=== PATIENT | female | born 1965 | race Caucasian/White ===

== ENCOUNTER → 2023-09-03 07:57 | Outpatient (REF) | payer BC, SELFPAY | LOC: WDC 07:57 | PROVIDERS: ATTENDING PHYSICIAN Obstetrics & Gynecology Gynecology; FAMILY PHYSICIAN Internal Medicine | DX: Z12.31 Encounter for screening mammogram for malignant neoplasm of breast (principal) | CPT/HCPCS: 77063; 77067 ==

== ENCOUNTER → 2023-11-28 07:50 | Outpatient (REF) | payer BC, SELFPAY ==
[2023-11-28 09:57] LABS: Hematocrit 37.2 % (37.0-47.0); Hemoglobin 13.1 g/dL (12.0-16.0); Mean Corp Hgb Conc. 35.2 g/dL (33.0-37.0); Mean Corpuscular Hgb 33.1 pg (27.0-31.0); Mean Corpuscular Volume 93.9 fL (81.0-99.0); Mean Platelet Volume 9.2 fL (7.4-10.4); Platelet Count 315 10^3/uL (130-400); Red Blood Cell Count 3.96 10^6/uL (4.20-5.40); Red Cell Dist. Width 11.9 % (11.5-14.5); White Blood Cell Count 4.1 10^3/uL (4.8-10.8)
[2023-11-28 10:37] LABS: ALT (SGPT) 18 U/L (0-35); AST (SGOT) 28 U/L (14-36); Albumin 4.5 g/dl (3.5-5.0); Alkaline Phosphatase 66 U/L (38-126); Blood Urea Nitrogen 18 mg/dl (7-17); Calcium 9.5 mg/dl (8.4-10.2); Carbon Dioxide 26 mmol/L (22-30); Chloride 103 mmol/L (98-107); Glucose 86 mg/dl (70-99); HDL Cholesterol 66 mg/dl; LDL Cholesterol, Calculated 134 mg/dl; Potassium 4.5 mmol/L (3.5-5.1); Sodium 138 mmol/L (135-145); Total Bilirubin 0.8 mg/dl (0.2-1.3); Total Cholesterol 211 mg/dl (50-199); Total Protein 7.3 g/dl (6.3-8.2); Triglyceride 56 mg/dl (10-149); Very Low Density Lipoprotein 11 mg/dl (0-30); eGFR > 60.00
[2023-11-28 10:58] LABS: TSH 6.12 uIU/ml (0.47-4.68)
[2023-11-28 11:05] LABS: Urine Albumin Negative (Neg - Trace); Urine Bilirubin Negative (Negative); Urine Character Clear (Clear); Urine Color Yellow; Urine Glucose Negative (Negative); Urine Ketone Negative (Negative); Urine Leukocyte Trace (Negative); Urine Nitrite Negative (Negative); Urine Occult Blood 2+ (Negative); Urine Specific Gravity 1.025 (<1.030); Urine Urobilinogen Negative (Neg - 1+)
[2023-11-28 12:11] LABS: Urine Squamous Cell 0-2 /LPF (Few)
[2023-11-28 12:13] LABS: Urine Red Blood Cell 21-25 /HPF (0-2)
[2023-11-28 12:14] LABS: Urine Bacteria Few (Negative)
[2023-11-30 13:25] LABS: Free T4 0.95 ng/dl (0.78-2.19)
== END ==
LOC: REG 07:50
PROVIDERS: ATTENDING PHYSICIAN Internal Medicine
DX: Z00.00 Encounter for general adult medical examination without abnormal findings (principal)
CPT/HCPCS: 36415; 80053; 80061; 81003; 81015; 84439; 84443; 85027

== ENCOUNTER → 2024-02-01 10:28 | Outpatient (REF) | payer BC, SELFPAY ==
[2024-02-01 12:53] LABS: Free T3 3.47 pg/ml (2.77-5.27); Free T4 1.06 ng/dl (0.78-2.19)
[2024-02-01 13:06] LABS: TSH 0.49 uIU/ml (0.47-4.68)
[2024-02-02 19:42] LABS: Thyroglobulin Antibodies 8.5 IU/mL (0.0-4.0)
== END ==
LOC: REG 10:28
PROVIDERS: ATTENDING PHYSICIAN Internal Medicine
DX: E03.9 Hypothyroidism, unspecified (principal)
CPT/HCPCS: 36415; 84439; 84443; 84481; 86376; 86800

== ENCOUNTER → 2024-09-07 07:46 | Outpatient (REF) | payer BC, SELFPAY | LOC: WDC 07:46 | PROVIDERS: ATTENDING PHYSICIAN Obstetrics & Gynecology Gynecology; FAMILY PHYSICIAN Internal Medicine | DX: Z12.31 Encounter for screening mammogram for malignant neoplasm of breast (principal) | CPT/HCPCS: 77063; 77067 ==

== ENCOUNTER → 2024-10-21 07:38 | Outpatient (REF) | payer BC, SELFPAY ==
[2024-10-21 09:21] LABS: % Basophils 1.6 % (0-2); % Eosinophils 2.1 % (0-6); % Immature Granulocytes 0.3 % (0-0.5); % Lymphocytes 32.9 % (20.5-51.1); % Monocytes 10.7 % (1.7-9.3); % Neutrophils 52.4 % (42.2-75.2); Absolute Basophils 0.1 10^3/uL (0-0.2); Absolute Eosinophils 0.1 10^3/uL (0-0.7); Absolute Lymphocytes 1.2 10^3/uL (1.2-3.4); Absolute Monocytes 0.4 10^3/uL (0.1-0.6); Hematocrit 40.4 % (37.0-47.0); Hemoglobin 13.7 g/dL (12.0-16.0); Mean Corp Hgb Conc. 33.9 g/dL (33.0-37.0); Mean Corpuscular Volume 97.3 fL (81.0-99.0); Mean Platelet Volume 9.1 fL (7.4-10.4); Nucleated Red Blood Cells % 0 %; Platelet Count 308 10^3/uL (130-400); Red Blood Cell Count 4.15 10^6/uL (4.20-5.40); Red Cell Dist. Width 11.7 % (11.5-14.5); White Blood Cell Count 3.7 10^3/uL (4.8-10.8)
[2024-10-21 09:22] LABS: Urine Albumin 1+ (Neg - Trace); Urine Bilirubin Negative (Negative); Urine Character Clear (Clear); Urine Color Yellow; Urine Glucose Negative (Negative); Urine Ketone Negative (Negative); Urine Leukocyte Negative (Negative); Urine Nitrite Negative (Negative); Urine Occult Blood 2+ (Negative); Urine Urobilinogen Negative (Neg - 1+); Urine pH 6.5 (5.0-9.0)
[2024-10-21 09:44] LABS: ALT (SGPT) 18 U/L (0-35); AST (SGOT) 24 U/L (14-36); Albumin 4.3 g/dl (3.5-5.0); Alkaline Phosphatase 65 U/L (38-126); Blood Urea Nitrogen 16 mg/dl (7-17); Calcium 9.7 mg/dl (8.4-10.2); Carbon Dioxide 29 mmol/L (22-30); Chloride 105 mmol/L (98-107); Glucose 93 mg/dl (70-99); HDL Cholesterol 65 mg/dl; LDL Cholesterol, Calculated 154 mg/dl; Potassium 4.9 mmol/L (3.5-5.1); Sodium 141 mmol/L (135-145); Total Bilirubin 0.8 mg/dl (0.2-1.3); Total Cholesterol 229 mg/dl (50-199); Total Protein 7.3 g/dl (6.3-8.2); Triglyceride 53 mg/dl (10-149); Very Low Density Lipoprotein 10 mg/dl (0-30); eGFR > 60.00
[2024-10-21 09:47] LABS: C-Reactive Protein < 5.00 mg/L (0.0-10.00)
[2024-10-21 10:05] LABS: Prolactin 9.4 ng/ml (3.0-18.6); Vitamin D, 25-OH*** 72.8 ng/mL (30-80)
[2024-10-21 10:09] LABS: Erythrocyte Sed Rate 9 mm/hour (0-20)
[2024-10-21 10:18] LABS: TSH 3.48 uIU/ml (0.47-4.68)
[2024-10-21 10:29] LABS: Urine Red Blood Cell 0-2 /HPF (0-2); Urine White Cell 0-2 /HPF (0-5)
== END ==
LOC: REG 07:38
PROVIDERS: ATTENDING PHYSICIAN Nurse Practitioner Primary Care
DX: R07.81 Pleurodynia (principal); R07.89 Other chest pain; R09.89 Other specified symptoms and signs involving the circulatory and respiratory systems; E03.8 Other specified hypothyroidism; Z00.00 Encounter for general adult medical examination without abnormal findings; E78.2 Mixed hyperlipidemia; N64.4 Mastodynia
CPT/HCPCS: 36415; 71046; 80053; 80061; 81003; 81015; 82306; 84146; 84439; 84443; 85025; 85652; 86140

== ENCOUNTER → 2024-10-25 08:23 | Outpatient (REF) | payer BC, SELFPAY ==
[2024-10-25 10:29] LABS: Urine Albumin Negative (Neg - Trace); Urine Bilirubin Negative (Negative); Urine Character Clear (Clear); Urine Color Yellow; Urine Glucose Negative (Negative); Urine Ketone Negative (Negative); Urine Leukocyte Negative (Negative); Urine Nitrite Negative (Negative); Urine Occult Blood Negative (Negative); Urine Specific Gravity 1.005 (<1.030); Urine Urobilinogen Negative (Neg - 1+)
[2024-10-25 11:42] LABS: Protein/creatinine Ratio 1.2; Urine Protein 13 mg/dl
== END ==
LOC: WDC 08:23
PROVIDERS: ATTENDING PHYSICIAN Nurse Practitioner Primary Care
DX: N64.4 Mastodynia (principal); R07.81 Pleurodynia; R07.89 Other chest pain; R80.9 Proteinuria, unspecified
CPT/HCPCS: 76642; 81003; 82570; 84156

== ENCOUNTER → 2025-01-05 14:49 | Outpatient (REF) | payer BC, SELFPAY ==
[2025-01-05 16:15] LABS: Free T3 3.98 pg/ml (2.77-5.27)
[2025-01-05 16:28] LABS: TSH 4.99 uIU/ml (0.47-4.68)
[2025-01-13 13:07] LABS: Thyroglobulin Antibodies 6.2 IU/mL (0.0-4.0)
== END ==
LOC: REG 14:49
PROVIDERS: ATTENDING PHYSICIAN Nurse Practitioner Family; FAMILY PHYSICIAN Internal Medicine
DX: E03.9 Hypothyroidism, unspecified (principal)
CPT/HCPCS: 36415; 84432; 84439; 84443; 84481; 86376; 86800